=== PATIENT | female | born 1995 | race Caucasian/White ===

== ENCOUNTER 2019-02-13 00:26 | Emergency (ER) | payer MEDICAID ==
[~2019-02-13] VITALS: Ht 160 cm; Wt 44.1 kg
[~2019-02-13 00:26] MED LIST: ESCI10TA54 PO; ESCI20TA PO; GABA-531 PO; HYDR-4031 PO; LITH300C3 PO; METH10 PO; QUET200T29 PO; QUET25TA PO; TRAZ-220 PO
[2019-02-13] MEDS ORDERED: BACITRACIN 0.9 GM PACKET OINTMENT TP ONE (02:15)
[2019-02-13] MEDS ORDERED: PERTUSS(ACELL),DIPH,TET VAC/PF 0.5 ML VIAL IM ONE (02:15)
[2019-02-13] MEDS ORDERED: BUPIVACAINE HCL/PF 0.25% 30 ML VIAL INJ ONE (02:15)
[2019-02-13] MEDS ORDERED: IBUPROFEN 600 MG TABLET PO ONE (02:15)
[2019-02-13] MEDS ORDERED: CEPHALEXIN MONOHYDRATE 500 MG CAPSULE PO ONE (02:45)
[2019-02-13 03:15] VITALS: BP 124/73
== END 2019-02-13 03:29 | disposition home or self-care (01) ==
LOC: EMS 00:31
DX: S91.311A Laceration without foreign body, right foot, initial encounter (principal); F31.9 Bipolar disorder, unspecified; F17.210 Nicotine dependence, cigarettes, uncomplicated; F11.90 Opioid use, unspecified, uncomplicated; F13.10 Sedative, hypnotic or anxiolytic abuse, uncomplicated; W25.XXXA Contact with sharp glass, initial encounter; Y93.89 Activity, other specified; Y92.89 Other specified places as the place of occurrence of the external cause; Y99.8 Other external cause status
CPT/HCPCS: 12002; 73630; 81025; 99283; 99406; J3490

== ENCOUNTER 2019-05-18 15:45 | Inpatient (IN) | payer MEDICAID ==
[~2019-05-18] VITALS: Ht 160 cm; Wt 48.1 kg
[~2019-05-18 15:45] MED LIST changes: -ESCI10TA54 PO; -ESCI20TA PO; +OLAN5TAB2 PO; -QUET200T29 PO
[2019-05-18 16:23] LABS: BASOPHILS % (AUTO) 0.5 % (0.0-2.0); EOSINOPHILS % (AUTO) 0.5 % (1.0-6.0); HEMATOCRIT 40.4 % (36-46); LYMPHOCYTES # (AUTO) 3.7 K/uL (1.0-4.8); LYMPHOCYTES % (AUTO) 33.4 % (22.0-44.0); MEAN CORPUSCULAR HEMOGLOBIN 30.3 pg (26.0-34.0); MEAN CORPUSCULAR HGB CONC 32.2 G/dL (31.0-37.0); MEAN CORPUSCULAR VOLUME 94 fL (80-100); MONOCYTES # (AUTO) 0.8 K/uL (0.1-1.0); NEUTROPHILS # (AUTO) 6.6 K/uL (1.8-7.7); NEUTROPHILS % (AUTO) 58.6 % (40.0-70.0); PLATELET COUNT (AUTO) 301 K/uL (150-450); RED BLOOD CELL COUNT(AUTO) 4.29 MIL/uL (4.00-5.20); RED CELL DISTRIBUTION WIDTH 14.6 % (11.5-14.5)
[2019-05-18 16:34] LABS: LITHIUM 0.25 mmol/L (0.60-1.20)
[2019-05-18 16:36] LABS: ANION GAP 9 mmol/L (8-16); CALCIUM, TOTAL 9.3 mg/dL (8.8-10.5); CARBON DIOXIDE 24 mmol/L (22-29); CHLORIDE 103 mmol/L (98-107); CREATININE 0.72 mg/dL (0.60-1.30); GLOMERULAR FILTR. RATE CALC > 60 mL/min (>60); GLUCOSE,RANDOM 116 mg/dL (70-110); POTASSIUM 3.5 mmol/L (3.5-5.1); SODIUM SERUM 136 mmol/L (136-145); UREA NITROGEN, BLOOD 28 mg/dL (7-18)
[2019-05-18 16:49] LABS: ALANINE AMINOTRANSFERASE 144 U/L (12-78); ALBUMIN 3.6 g/dL (3.4-5.0); ALKALINE PHOSPHATASE 91 U/L (46-116); ASPARTATE AMINOTRANSFERASE 32 U/L (15-37); BILIRUBIN,TOTAL 0.2 mg/dL (0.1-1.0); HCG,QUANTITATIVE < 1 mIU/mL (0-6); TOTAL PROTEIN, SERUM 6.8 g/dL (6.4-8.2)
[2019-05-18] MEDS ORDERED: DiphenhydrAMINE HCL 25 MG CAPSULE PO ONE (17:30)
[2019-05-18] MEDS ORDERED: LORazepam 1 MG TABLET PO ONE (17:30)
[2019-05-18] MEDS ORDERED: HALOPERIDOL 5 MG TABLET PO ONE (17:30)
[2019-05-18] MEDS ORDERED: OLANZapine 5 MG TABLET PO ONE (18:45)
[2019-05-18 21:42] VITALS: BP 122/82
[2019-05-18] MEDS: LITHIUM CARBONATE 300 MG CAPSULE PO SCH (22:00)
[2019-05-18] MEDS ORDERED: PETROLATUM,WHITE 28 GM JELLY TP PRN (22:45)
[2019-05-18] MEDS ORDERED: GuaiFENesin/D-METHORPHAN [SUGAR-FREE] 200-20MG/10 ML SYRUP UDCUP PO PRN (22:45)
[2019-05-18] MEDS ORDERED: MAGNESIUM HYDROXIDE SUSPENSION 30 ML UDCUP PO PRN (22:45)
[2019-05-18] MEDS ORDERED: DOCUSATE SODIUM 100 MG CAPSULE PO PRN (22:45)
[2019-05-18] MEDS ORDERED: ACETAMINOPHEN 325 MG TABLET PO PRN (22:45)
[2019-05-18] MEDS ORDERED: CloNIDine HCL 0.1 MG TABLET PO PRN (22:45)
[2019-05-18] MEDS ORDERED: ALBUTEROL SULFATE HFA 90 MCG/PUFF 8 GM INHALER IH PRN (22:45)
[2019-05-18] MEDS ORDERED: ONDANSETRON HCL 4 MG TABLET PO PRN (22:45)
[2019-05-18] MEDS ORDERED: NICOTINE 14 MG/24 HOUR PATCH TD PRN (22:45)
[2019-05-18] MEDS: ZOLPIDEM TARTRATE 10 MG TABLET PO PRN (22:51)
[2019-05-19] MEDS: LITHIUM CARBONATE 300 MG CAPSULE PO SCH ×2 (08:07→16:01)
[2019-05-19] MEDS: LOPERAMIDE HCL 2 MG CAPSULE PO PRN (08:07)
[2019-05-19] MEDS: OLANZapine 5 MG TABLET PO SCH ×2 (08:07→16:01)
[2019-05-19] MEDS: HALOPERIDOL 5 MG TABLET PO PRN (08:08)
[2019-05-19 08:18] VITALS: BP 100/62
[2019-05-19 13:12] VITALS: BP 126/76
[2019-05-19] MEDS: LORazepam 2 MG TABLET PO PRN ×2 (13:12→17:37)
[2019-05-19 16:03] VITALS: BP 112/76
[2019-05-20 06:50] VITALS: BP 115/77
[2019-05-20 08:00] VITALS: BP 105/71
[2019-05-20] MEDS: OLANZapine 5 MG TABLET PO SCH ×2 (08:01→16:13)
[2019-05-20] MEDS: LORazepam 2 MG TABLET PO PRN ×4 (08:01→20:32)
[2019-05-20] MEDS: LITHIUM CARBONATE 300 MG CAPSULE PO SCH ×2 (08:01→16:13)
[2019-05-20] MEDS: MAG HYDROX/AL HYDROX/SIMETH ES 30 ML SUSPENSION UDCUP PO PRN ×2 (08:03→16:13)
[2019-05-20 08:15] VITALS: BP 103/50
[2019-05-20] MEDS: HALOPERIDOL 5 MG TABLET PO PRN ×2 (14:07→18:36)
[2019-05-20 16:00] VITALS: BP 124/68
[2019-05-20] MEDS: ZOLPIDEM TARTRATE 10 MG TABLET PO PRN (20:09)
[2019-05-21 05:55] VITALS: BP 127/66
[2019-05-21 08:27] VITALS: BP 100/75
[2019-05-21] MEDS: LITHIUM CARBONATE 300 MG CAPSULE PO SCH (08:31)
[2019-05-21] MEDS: OLANZapine 5 MG TABLET PO SCH ×2 (08:31→16:12)
[2019-05-21 08:35] VITALS: BP 128/74
[2019-05-21] MEDS: LORazepam 2 MG TABLET PO PRN ×3 (08:36→18:32)
[2019-05-21] MEDS: MAG HYDROX/AL HYDROX/SIMETH ES 30 ML SUSPENSION UDCUP PO PRN (09:42)
[2019-05-21 09:43] LABS: BILIRUBIN,URINE NEGATIVE (NEGATIVE); GLUCOSE, URINE (UA) NEGATIVE (NEGATIVE); KETONES,URINE NEGATIVE (NEGATIVE); LEUKOCYTE ESTERASE ,URINE SMALL (NEGATIVE); NITRATE,URINE NEGATIVE (NEGATIVE); OCCULT BLOOD,URINE NEGATIVE (NEGATIVE); PROTEIN,URINE NEGATIVE (NEGATIVE); UROBILINOGEN,URINE 0.2 mg/dL (<=1.0)
[2019-05-21 09:46] LABS: APPEARANCE,URINE SLIGHTLY CLOUDY (CLEAR)
[2019-05-21 09:49] LABS: AMPHET/METH SCREEN,URINE NEGATIVE (NEGATIVE); BARBITURATE SCREEN, URINE NEGATIVE (NEGATIVE); BENZODIAZEPINES SCREEN,URINE NEGATIVE (NEGATIVE); CANNABINOID SCREEN,URINE NEGATIVE (NEGATIVE); COCAINE SCREEN,URINE NEGATIVE (NEGATIVE); METHADONE SCREEN, URINE NEGATIVE (NEGATIVE); OPIATE SCREEN,URINE NEGATIVE (NEGATIVE); PHENCYCLIDINE SCREEN,URINE NEGATIVE (NEGATIVE)
[2019-05-21 09:58] LABS: BACTERIA,URINE Moderate /HPF (None Seen); RBC,URINE 0-2 /HPF (0-2); SQUAMOUS EPITHELIAL CELL,UR Moderate /LPF (None Seen)
[2019-05-21 09:59] LABS: AMORPHOUS SEDIMENT,UR Moderate /LPF (None Seen); CALCIUM OXALATE CRYSTALS,UR Moderate /LPF (None Seen)
[2019-05-21] MEDS: HALOPERIDOL 5 MG TABLET PO PRN ×2 (10:43→17:18)
[2019-05-21 16:08] VITALS: BP 121/70
[2019-05-21] MEDS: LITHIUM CARBONATE 600 MG CAPSULE PO SCH (16:12)
[2019-05-21] MEDS: IBUPROFEN 400 MG TABLET PO PRN (16:47)
[2019-05-21 17:47] VITALS: BP 118/65
[2019-05-22] VITALS: BP 129/86
[2019-05-22] MEDS: IBUPROFEN 400 MG TABLET PO PRN (06:03)
[2019-05-22] MEDS: MAG HYDROX/AL HYDROX/SIMETH ES 30 ML SUSPENSION UDCUP PO PRN ×2 (06:03→16:35)
[2019-05-22] MEDS: LORazepam 2 MG TABLET PO PRN ×2 (06:03→16:34)
[2019-05-22] MEDS: OLANZapine 5 MG TABLET PO SCH ×2 (08:14→16:34)
[2019-05-22] MEDS: LITHIUM CARBONATE 600 MG CAPSULE PO SCH ×2 (08:14→10:00)
[2019-05-22 08:19] VITALS: BP 100/57
[2019-05-22 16:09] VITALS: BP 126/72
[2019-05-22] MEDS: HALOPERIDOL 5 MG TABLET PO PRN (16:34)
[2019-05-22] MEDS: CEPHALEXIN MONOHYDRATE 250 MG CAPSULE PO SCH (16:34)
[2019-05-22] MEDS: ZOLPIDEM TARTRATE 10 MG TABLET PO PRN (20:34)
[2019-05-23 01:31] VITALS: BP 111/59
[2019-05-23] MEDS: LORazepam 2 MG TABLET PO PRN ×2 (01:36→12:41)
[2019-05-23] MEDS: HALOPERIDOL 5 MG TABLET PO PRN (01:36)
[2019-05-23 08:00] VITALS: BP 118/62
[2019-05-23] MEDS: CEPHALEXIN MONOHYDRATE 250 MG CAPSULE PO SCH ×3 (08:24→16:10)
[2019-05-23] MEDS: OLANZapine 5 MG TABLET PO SCH ×2 (08:25→16:10)
[2019-05-23] MEDS: LITHIUM CARBONATE 600 MG CAPSULE PO SCH ×2 (08:25→16:10)
[2019-05-23] MEDS ORDERED: LITH300C3 PO (09:49)
[2019-05-23] MEDS ORDERED: CEPH250 PO (09:50)
[2019-05-23] MEDS: LOPERAMIDE HCL 2 MG CAPSULE PO PRN (15:04)
[2019-05-23 16:05] VITALS: BP 125/66
== END 2019-05-23 18:17 | disposition home or self-care (01) | DRG 750 ==
LOC: EMS 15:47 → B3A 19:00
PROVIDERS: ADMIT Psychiatry & Neurology Psychiatry; ATTEND Psychiatry & Neurology Psychiatry
DX: F25.1 Schizoaffective disorder, depressive type (principal); R45.851 Suicidal ideations; Z59.0 Homelessness; F11.90 Opioid use, unspecified, uncomplicated; F15.90 Other stimulant use, unspecified, uncomplicated; F17.210 Nicotine dependence, cigarettes, uncomplicated; F41.9 Anxiety disorder, unspecified; N39.0 Urinary tract infection, site not specified; B19.20 Unspecified viral hepatitis C without hepatic coma
CPT/HCPCS: 80307; 84443; 87081; 87086; G0480; Q0162

== ENCOUNTER 2019-08-11 16:26 | Inpatient (IN) | payer MEDICAID ==
[~2019-08-11] VITALS: Ht 157.5 cm; Wt 53.1 kg
[~2019-08-11 16:26] MED LIST changes: +CEPH250 PO; -GABA-531 PO; -HYDR-4031 PO; -METH10 PO; -QUET25TA PO; -TRAZ-220 PO
[2019-08-11] MEDS ORDERED: OLANZapine 5 MG TABLET PO SCH (21:30)
[2019-08-11] MEDS ORDERED: MIRTAZAPINE 15 MG TABLET PO SCH (21:30)
[2019-08-11] MEDS ORDERED: ACETAMINOPHEN 325 MG TABLET PO PRN (21:45)
[2019-08-11] MEDS ORDERED: IBUPROFEN 400 MG TABLET PO PRN (21:45)
[2019-08-11 22:59] VITALS: BP 108/63
[2019-08-12 04:13] VITALS: BP 104/66
[2019-08-12] MEDS: LORazepam 2 MG TABLET PO PRN ×3 (04:15→15:11)
[2019-08-12 07:42] LABS: BASOPHILS % (AUTO) 0.4 % (0.0-2.0); EOSINOPHILS % (AUTO) 2.4 % (1.0-6.0); HEMOGLOBIN 13.5 g/dL (12.0-16.0); LYMPHOCYTES # (AUTO) 2.9 K/uL (1.0-4.8); LYMPHOCYTES % (AUTO) 38.1 % (22.0-44.0); MEAN CORPUSCULAR HEMOGLOBIN 33.3 pg (26.0-34.0); MEAN CORPUSCULAR HGB CONC 35.4 G/dL (31.0-37.0); MEAN CORPUSCULAR VOLUME 94 fL (80-100); MONOCYTES # (AUTO) 0.4 K/uL (0.1-1.0); MONOCYTES % (AUTO) 5.4 % (2.0-9.0); NEUTROPHILS # (AUTO) 4.1 K/uL (1.8-7.7); NEUTROPHILS % (AUTO) 53.7 % (40.0-70.0); PLATELET COUNT (AUTO) 254 K/uL (150-450); RED BLOOD CELL COUNT(AUTO) 4.04 MIL/uL (4.00-5.20); RED CELL DISTRIBUTION WIDTH 13.9 % (11.5-14.5)
[2019-08-12 08:00] VITALS: BP 102/69
[2019-08-12 08:06] LABS: ALANINE AMINOTRANSFERASE 37 U/L (12-78); ALBUMIN 3.4 g/dL (3.4-5.0); ALKALINE PHOSPHATASE 76 U/L (46-116); ANION GAP 5 mmol/L (8-16); ASPARTATE AMINOTRANSFERASE 16 U/L (15-37); BILIRUBIN,TOTAL 0.3 mg/dL (0.1-1.0); CALCIUM, TOTAL 9.6 mg/dL (8.8-10.5); CARBON DIOXIDE 33 mmol/L (22-29); CHLORIDE 99 mmol/L (98-107); CHOL/HDL RATIO 4.6 (3.9-5.7); CHOLESTEROL 196 mg/dL (131-200); CREATININE 0.58 mg/dL (0.60-1.30); GLOMERULAR FILTR. RATE CALC > 60 mL/min (>60); GLUCOSE,RANDOM 85 mg/dL (70-110); HCG,QUANTITATIVE < 1 mIU/mL (0-6); HDL CHOLESTEROL 43 mg/dL (40-60); LDL CHOL (CALC.) 127 mg/dL (0-130); POTASSIUM 4.3 mmol/L (3.5-5.1); SODIUM SERUM 137 mmol/L (136-145); TOTAL PROTEIN, SERUM 7.5 g/dL (6.4-8.2); TRIGLYCERIDES 130 mg/dL (15-150); UREA NITROGEN, BLOOD 8 mg/dL (7-18)
[2019-08-12] MEDS: GABAPENTIN 300 MG CAPSULE PO SCH (08:55)
[2019-08-12] MEDS: METHADONE HCL 10 MG TABLET PO SCH (08:55)
[2019-08-12] MEDS: NICOTINE 14 MG/24 HOUR PATCH TD SCH (08:59)
[2019-08-12] MEDS: BACITRACIN 28.4 GM OINTMENT TP SCH ×2 (09:18→17:06)
[2019-08-12] MEDS ORDERED: ALBUTEROL SULFATE HFA 90 MCG/PUFF 8 GM INHALER IH PRN (14:15)
[2019-08-12] MEDS ORDERED: GuaiFENesin/D-METHORPHAN [SUGAR-FREE] 200-20MG/10 ML SYRUP UDCUP PO PRN (14:15)
[2019-08-12] MEDS ORDERED: DOCUSATE SODIUM 100 MG CAPSULE PO PRN (14:15)
[2019-08-12] MEDS ORDERED: MAGNESIUM HYDROXIDE SUSPENSION 30 ML UDCUP PO PRN (14:15)
[2019-08-12] MEDS ORDERED: LOPERAMIDE HCL 2 MG CAPSULE PO PRN (14:15)
[2019-08-12] MEDS ORDERED: NICOTINE 14 MG/24 HOUR PATCH TD PRN (14:15)
[2019-08-12] MEDS ORDERED: ACETAMINOPHEN 325 MG TABLET PO PRN (14:15)
[2019-08-12] MEDS ORDERED: MAG HYDROX/AL HYDROX/SIMETH ES 30 ML SUSPENSION UDCUP PO PRN (14:15)
[2019-08-12] MEDS ORDERED: PETROLATUM,WHITE 28 GM JELLY TP PRN (14:15)
[2019-08-12] MEDS ORDERED: ONDANSETRON HCL 4 MG TABLET PO PRN (14:15)
[2019-08-12] MEDS ORDERED: CloNIDine HCL 0.1 MG TABLET PO PRN (14:15)
[2019-08-12] MEDS: HALOPERIDOL 5 MG TABLET PO PRN ×2 (15:11→21:28)
[2019-08-12 16:18] VITALS: BP 105/72
[2019-08-12 16:29] LABS: APPEARANCE,URINE CLOUDY (CLEAR); BILIRUBIN,URINE NEGATIVE (NEGATIVE); GLUCOSE, URINE (UA) NEGATIVE (NEGATIVE); KETONES,URINE NEGATIVE (NEGATIVE); LEUKOCYTE ESTERASE ,URINE NEGATIVE (NEGATIVE); NITRATE,URINE NEGATIVE (NEGATIVE); OCCULT BLOOD,URINE NEGATIVE (NEGATIVE); PROTEIN,URINE NEGATIVE (NEGATIVE); UROBILINOGEN,URINE 0.2 mg/dL (<=1.0)
[2019-08-12 16:34] LABS: AMPHET/METH SCREEN,URINE NEGATIVE (NEGATIVE); BARBITURATE SCREEN, URINE NEGATIVE (NEGATIVE); BENZODIAZEPINES SCREEN,URINE NEGATIVE (NEGATIVE); CANNABINOID SCREEN,URINE NEGATIVE (NEGATIVE); COCAINE SCREEN,URINE NEGATIVE (NEGATIVE); METHADONE SCREEN, URINE POSITIVE (NEGATIVE); OPIATE SCREEN,URINE NEGATIVE (NEGATIVE); PHENCYCLIDINE SCREEN,URINE NEGATIVE (NEGATIVE)
[2019-08-12] MEDS: LURASIDONE HCL 40 MG TABLET PO SCH (17:06)
[2019-08-12] MEDS: ZOLPIDEM TARTRATE 10 MG TABLET PO PRN (22:11)
[2019-08-13 03:06] VITALS: BP 96/75
[2019-08-13 09:01] VITALS: BP 109/64
[2019-08-13] MEDS: MULTIVITAMINS WITH MINERALS, THERAPEUTIC TABLET PO SCH (09:06)
[2019-08-13] MEDS: GABAPENTIN 300 MG CAPSULE PO SCH (09:06)
[2019-08-13] MEDS: BACITRACIN 28.4 GM OINTMENT TP SCH ×2 (09:07→17:14)
[2019-08-13] MEDS: NICOTINE 14 MG/24 HOUR PATCH TD SCH (09:07)
[2019-08-13] MEDS: METHADONE HCL 10 MG TABLET PO SCH (09:07)
[2019-08-13] MEDS: LORazepam 2 MG TABLET PO PRN ×2 (10:03→17:33)
[2019-08-13] MEDS: HALOPERIDOL 5 MG TABLET PO PRN ×2 (10:03→17:33)
[2019-08-13 16:05] VITALS: BP 102/68
[2019-08-13 16:25] VITALS: BP 102/74
[2019-08-13] MEDS: LURASIDONE HCL 40 MG TABLET PO SCH (17:32)
[2019-08-13] MEDS: ZOLPIDEM TARTRATE 10 MG TABLET PO PRN (21:23)
[2019-08-14] MEDS: LORazepam 2 MG TABLET PO PRN ×2 (05:43→17:46)
[2019-08-14] MEDS: GABAPENTIN 300 MG CAPSULE PO SCH (08:10)
[2019-08-14] MEDS: MULTIVITAMINS WITH MINERALS, THERAPEUTIC TABLET PO SCH (08:10)
[2019-08-14] MEDS: METHADONE HCL 10 MG TABLET PO SCH (08:10)
[2019-08-14] MEDS: NICOTINE 14 MG/24 HOUR PATCH TD SCH (08:11)
[2019-08-14] MEDS: BACITRACIN 28.4 GM OINTMENT TP SCH ×2 (08:11→17:02)
[2019-08-14 08:45] VITALS: BP 99/59
[2019-08-14] MEDS ORDERED: ZOLPIDEM TARTRATE 10 MG TABLET PO PRN (09:45)
[2019-08-14 17:00] VITALS: BP 111/70
[2019-08-14] MEDS: LURASIDONE HCL 40 MG TABLET PO SCH (17:02)
[2019-08-15 07:48] VITALS: BP 96/65
[2019-08-15] MEDS: NICOTINE 14 MG/24 HOUR PATCH TD SCH (08:23)
[2019-08-15] MEDS: MULTIVITAMINS WITH MINERALS, THERAPEUTIC TABLET PO SCH (08:24)
[2019-08-15] MEDS: METHADONE HCL 10 MG TABLET PO SCH (08:24)
[2019-08-15] MEDS: GABAPENTIN 300 MG CAPSULE PO SCH (08:25)
[2019-08-15] MEDS: LORazepam 2 MG TABLET PO PRN ×2 (13:05→20:14)
[2019-08-15] MEDS: BACITRACIN 28.4 GM OINTMENT TP SCH ×2 (13:08→16:32)
[2019-08-15] MEDS: LURASIDONE HCL 40 MG TABLET PO SCH (17:05)
[2019-08-15 17:08] VITALS: BP 108/72
[2019-08-15] MEDS: HALOPERIDOL 5 MG TABLET PO PRN (17:08)
[2019-08-15 20:12] VITALS: BP 112/74
[2019-08-15] MEDS: IBUPROFEN 400 MG TABLET PO PRN (20:12)
[2019-08-16 08:00] VITALS: BP 98/64
[2019-08-16] MEDS: MULTIVITAMINS WITH MINERALS, THERAPEUTIC TABLET PO SCH (08:19)
[2019-08-16] MEDS: METHADONE HCL 10 MG TABLET PO SCH (08:19)
[2019-08-16] MEDS: GABAPENTIN 300 MG CAPSULE PO SCH (08:19)
[2019-08-16] MEDS: NICOTINE 14 MG/24 HOUR PATCH TD SCH (08:20)
[2019-08-16] MEDS: BACITRACIN 28.4 GM OINTMENT TP SCH ×2 (08:29→16:18)
[2019-08-16 11:19] VITALS: BP 102/68
[2019-08-16] MEDS: IBUPROFEN 400 MG TABLET PO PRN (11:19)
[2019-08-16] MEDS: LORazepam 2 MG TABLET PO PRN (12:57)
[2019-08-16] MEDS: HALOPERIDOL 5 MG TABLET PO PRN (15:50)
[2019-08-16 16:22] VITALS: BP 112/76
[2019-08-16] MEDS: LURASIDONE HCL 40 MG TABLET PO SCH (17:33)
[2019-08-17] MEDS: HALOPERIDOL 5 MG TABLET PO PRN (01:04)
[2019-08-17] MEDS: LORazepam 2 MG TABLET PO PRN (01:04)
[2019-08-17] MEDS: METHADONE HCL 10 MG TABLET PO SCH (08:06)
[2019-08-17] MEDS: MULTIVITAMINS WITH MINERALS, THERAPEUTIC TABLET PO SCH (08:06)
[2019-08-17] MEDS: GABAPENTIN 300 MG CAPSULE PO SCH (08:06)
[2019-08-17] MEDS: NICOTINE 14 MG/24 HOUR PATCH TD SCH (09:00)
[2019-08-17 09:56] VITALS: BP 108/68
[2019-08-17] MEDS: BACITRACIN 28.4 GM OINTMENT TP SCH (10:38)
[2019-08-17] MEDS ORDERED: LURA40 PO (10:40)
[2019-08-17] MEDS ORDERED: GABA-531 PO (10:40)
[2019-08-17] MEDS ORDERED: BACI30OI6 TP (11:18)
== END 2019-08-17 11:30 | disposition home or self-care (01) | DRG 885 ==
LOC: 3EC 20:51
DX: F25.0 Schizoaffective disorder, bipolar type (principal); B18.2 Chronic viral hepatitis C; Z59.0 Homelessness; F10.10 Alcohol abuse, uncomplicated; F12.10 Cannabis abuse, uncomplicated; F15.10 Other stimulant abuse, uncomplicated; K21.9 Gastro-esophageal reflux disease without esophagitis; F19.10 Other psychoactive substance abuse, uncomplicated; F32.9 Major depressive disorder, single episode, unspecified; G89.29 Other chronic pain; Z79.899 Other long term (current) drug therapy; Z71.41 Alcohol abuse counseling and surveillance of alcoholic
CPT/HCPCS: 80307; 84443; 87081

== ENCOUNTER 2020-05-04 11:59 | Emergency (ER) | payer MEDICAID ==
[~2020-05-04] VITALS: Ht 160 cm; Wt 63.6 kg
[~2020-05-04 11:59] MED LIST changes: +BACI30OI6 TP; -CEPH250 PO; +GABA-531 PO; -LITH300C3 PO; +LURA40TA2 PO; -OLAN5TAB2 PO
[2020-05-04 12:16] VITALS: BP 132/91
== END 2020-05-04 12:59 | disposition home or self-care (01) ==
LOC: EMS 12:04
DX: L03.114 Cellulitis of left upper limb (principal); R55 Syncope and collapse; F19.10 Other psychoactive substance abuse, uncomplicated; F17.210 Nicotine dependence, cigarettes, uncomplicated; F31.9 Bipolar disorder, unspecified; F20.9 Schizophrenia, unspecified; F11.90 Opioid use, unspecified, uncomplicated; Z59.0 Homelessness
CPT/HCPCS: 99291; Z7502

== ENCOUNTER 2020-05-06 11:44 | Emergency (ER) | payer MEDICAID ==
[~2020-05-06] VITALS: Ht 160 cm; Wt 45.5 kg
[2020-05-06 11:58] VITALS: BP 113/72
[2020-05-06] MEDS ORDERED: IBUPROFEN 400 MG TABLET PO ONE (12:30)
[2020-05-06] MEDS ORDERED: DOXYCYCLINE HYCLATE 100 MG TABLET PO ONE (12:30)
== END 2020-05-06 12:42 | disposition home or self-care (01) ==
LOC: EMS 11:46
DX: S90.512A Abrasion, left ankle, initial encounter (principal); L08.9 Local infection of the skin and subcutaneous tissue, unspecified; F31.9 Bipolar disorder, unspecified; F11.90 Opioid use, unspecified, uncomplicated; F17.210 Nicotine dependence, cigarettes, uncomplicated; Z79.899 Other long term (current) drug therapy; X58.XXXA Exposure to other specified factors, initial encounter; Y93.89 Activity, other specified; Y92.89 Other specified places as the place of occurrence of the external cause; Y99.8 Other external cause status
CPT/HCPCS: 99406

== ENCOUNTER 2020-05-24 04:53 | Emergency (ER) | payer MEDICAID ==
[~2020-05-24] VITALS: Ht 160 cm; Wt 49.1 kg
[2020-05-24 06:39] VITALS: BP 101/67
[2020-05-24] MEDS ORDERED: BACITRACIN 0.9 GM PACKET OINTMENT TP ONE (06:45)
== END 2020-05-24 07:04 | disposition home or self-care (01) ==
LOC: EMS 04:53
DX: S90.511A Abrasion, right ankle, initial encounter (principal); F31.9 Bipolar disorder, unspecified; F20.9 Schizophrenia, unspecified; F17.210 Nicotine dependence, cigarettes, uncomplicated; F11.90 Opioid use, unspecified, uncomplicated; X58.XXXA Exposure to other specified factors, initial encounter; Y93.89 Activity, other specified; Y92.89 Other specified places as the place of occurrence of the external cause; Y99.8 Other external cause status
CPT/HCPCS: Z7502; Z7610

== ENCOUNTER 2021-04-05 10:24 | Emergency (ER) | payer MEDICAID ==
[~2021-04-05] VITALS: Ht 160 cm; Wt 65.9 kg
[2021-04-05] MEDS ORDERED: LEVE500T8 PO (10:29)
[2021-04-05 12:13] VITALS: BP 128/69
== END 2021-04-05 13:08 | disposition left against medical advice (07) ==
LOC: EMS 10:24
DX: R56.9 Unspecified convulsions (principal); Z53.21 Procedure and treatment not carried out due to patient leaving prior to being seen by health care provider
CPT/HCPCS: 82948

== ENCOUNTER 2021-04-29 12:05 | Inpatient (IN) | payer MEDICAID ==
[~2021-04-29] VITALS: Ht 160 cm; Wt 52.5 kg
[~2021-04-29 12:05] MED LIST changes: +LEVE500T8 PO
[2021-04-29 16:35] LABS: AMPHET/METH SCREEN,URINE POSITIVE (NEGATIVE); BARBITURATE SCREEN, URINE NEGATIVE (NEGATIVE); BENZODIAZEPINES SCREEN,URINE NEGATIVE (NEGATIVE); CANNABINOID SCREEN,URINE NEGATIVE (NEGATIVE); COCAINE SCREEN,URINE NEGATIVE (NEGATIVE); METHADONE SCREEN, URINE NEGATIVE (NEGATIVE); OPIATE SCREEN,URINE NEGATIVE (NEGATIVE)
[2021-04-29 16:39] LABS: PHENCYCLIDINE SCREEN,URINE NEGATIVE (NEGATIVE)
[2021-04-29 17:21] LABS: BASOPHILS % (AUTO) 0.3 % (0.0-2.0); EOSINOPHILS % (AUTO) 1.2 % (1.0-6.0); HEMATOCRIT 36.9 % (36-46); HEMOGLOBIN 12.3 g/dL (12.0-16.0); LYMPHOCYTES # (AUTO) 2.9 K/uL (1.0-4.8); LYMPHOCYTES % (AUTO) 37.7 % (22.0-44.0); MEAN CORPUSCULAR HGB CONC 33.3 G/dL (31.0-37.0); MEAN CORPUSCULAR VOLUME 93 fL (80-100); MONOCYTES # (AUTO) 0.6 K/uL (0.1-1.0); MONOCYTES % (AUTO) 7.2 % (2.0-9.0); NEUTROPHILS # (AUTO) 4.1 K/uL (1.8-7.7); NEUTROPHILS % (AUTO) 53.6 % (40.0-70.0); PLATELET COUNT (AUTO) 242 K/uL (150-450); RED BLOOD CELL COUNT(AUTO) 3.96 MIL/uL (4.00-5.20); RED CELL DISTRIBUTION WIDTH 13.3 % (11.5-14.5)
[2021-04-29 17:38] LABS: ANION GAP 6 mmol/L (8-16); CALCIUM, TOTAL 8.7 mg/dL (8.8-10.5); CARBON DIOXIDE 29 mmol/L (22-29); CHLORIDE 102 mmol/L (98-107); CREATININE 0.59 mg/dL (0.60-1.30); GLOMERULAR FILTR. RATE CALC > 60 mL/min (>60); GLUCOSE,RANDOM 112 mg/dL (70-110); POTASSIUM 3.4 mmol/L (3.5-5.1); SODIUM SERUM 137 mmol/L (136-145); UREA NITROGEN, BLOOD 20 mg/dL (7-18)
[2021-04-29 17:51] LABS: ALANINE AMINOTRANSFERASE 19 U/L (12-78); ALBUMIN 3.5 g/dL (3.4-5.0); ALKALINE PHOSPHATASE 150 U/L (46-116); ASPARTATE AMINOTRANSFERASE 15 U/L (15-37); BILIRUBIN,TOTAL 0.2 mg/dL (0.1-1.0); HCG,QUANTITATIVE < 1 mIU/mL (0-6); TOTAL PROTEIN, SERUM 6.8 g/dL (6.4-8.2)
[2021-04-29] MEDS ORDERED: POTASSIUM CHLORIDE 10% 40 MEQ/30 ML LIQUID UDCUP PO ONE (19:15)
[2021-04-29 19:49] LABS: COVID AG,FIA SOURCE NASOPHARYNGEAL
[2021-04-29] MEDS ORDERED: QUEtiapine FUMARATE 100 MG TABLET PO PRN (20:00)
[2021-04-29 22:17] VITALS: BP 117/68
[2021-04-30 00:26] VITALS: BP 103/62
[2021-04-30] MEDS ORDERED: MAGNESIUM HYDROXIDE SUSPENSION 30 ML UDCUP PO PRN (07:45)
[2021-04-30] MEDS ORDERED: GuaiFENesin/D-METHORPHAN [SUGAR-FREE] 200-20MG/10 ML SYRUP UDCUP PO PRN (07:45)
[2021-04-30] MEDS ORDERED: MAG HYDROX/AL HYDROX/SIMETH ES 30 ML SUSPENSION UDCUP PO PRN (07:45)
[2021-04-30] MEDS ORDERED: PETROLATUM,WHITE 28 GM JELLY TP PRN (07:45)
[2021-04-30] MEDS ORDERED: IBUPROFEN 400 MG TABLET PO PRN (07:45)
[2021-04-30] MEDS ORDERED: CloNIDine HCL 0.1 MG TABLET PO PRN (07:45)
[2021-04-30] MEDS ORDERED: ACETAMINOPHEN 325 MG TABLET PO PRN (07:45)
[2021-04-30] MEDS ORDERED: ONDANSETRON HCL 4 MG TABLET PO PRN (07:45)
[2021-04-30] MEDS ORDERED: NICOTINE 14 MG/24 HOUR PATCH TD PRN (07:45)
[2021-04-30] MEDS ORDERED: DOCUSATE SODIUM 100 MG CAPSULE PO PRN (07:45)
[2021-04-30] MEDS ORDERED: ALBUTEROL SULFATE HFA 90 MCG/PUFF 8 GM INHALER IH PRN (07:45)
[2021-04-30] MEDS ORDERED: LOPERAMIDE HCL 2 MG CAPSULE PO PRN (07:45)
[2021-04-30 08:27] VITALS: BP 105/57
[2021-04-30] MEDS: GABAPENTIN 300 MG CAPSULE PO SCH (09:23)
[2021-04-30] MEDS: LevETIRAcetam 500 MG TABLET PO SCH ×2 (09:23→16:28)
[2021-04-30 16:17] VITALS: BP 103/67
[2021-04-30] MEDS: QUEtiapine FUMARATE 200 MG TABLET PO SCH (20:55)
[2021-05-01 01:30] VITALS: BP 104/62
[2021-05-01 08:29] VITALS: BP 115/71
[2021-05-01] MEDS: LevETIRAcetam 500 MG TABLET PO SCH ×2 (08:50→16:17)
[2021-05-01] MEDS: GABAPENTIN 300 MG CAPSULE PO SCH (08:50)
[2021-05-01] MEDS: LORazepam 2 MG TABLET PO PRN (13:12)
[2021-05-01 16:24] VITALS: BP 111/65
[2021-05-01] MEDS: ZOLPIDEM TARTRATE 10 MG TABLET PO PRN (21:00)
[2021-05-01] MEDS: QUEtiapine FUMARATE 200 MG TABLET PO SCH (21:00)
[2021-05-02 01:20] VITALS: BP 135/70
[2021-05-02] MEDS: GABAPENTIN 300 MG CAPSULE PO SCH (08:47)
[2021-05-02] MEDS: LevETIRAcetam 500 MG TABLET PO SCH ×2 (08:47→16:22)
[2021-05-02 09:03] VITALS: BP 103/57
[2021-05-02] MEDS: LORazepam 2 MG TABLET PO PRN (16:22)
[2021-05-02 16:27] VITALS: BP 107/66
[2021-05-02] MEDS: QUEtiapine FUMARATE 200 MG TABLET PO SCH (20:19)
[2021-05-03 00:40] VITALS: BP 108/74
[2021-05-03] MEDS: GABAPENTIN 300 MG CAPSULE PO SCH (08:18)
[2021-05-03] MEDS: LevETIRAcetam 500 MG TABLET PO SCH ×2 (08:18→16:26)
[2021-05-03] MEDS: MULTIVITAMINS WITH MINERALS, THERAPEUTIC TABLET PO SCH (08:18)
[2021-05-03 09:07] VITALS: BP 105/65
[2021-05-03] MEDS: LORazepam 2 MG TABLET PO PRN (09:49)
[2021-05-03 16:12] VITALS: BP 104/61
[2021-05-03] MEDS: QUEtiapine FUMARATE 200 MG TABLET PO SCH (20:28)
[2021-05-03] MEDS ORDERED: PERMETHRIN 1% 60 ML LOTION TP ONE (22:30)
[2021-05-04 06:02] VITALS: BP 110/62
[2021-05-04 08:09] VITALS: BP 123/62
[2021-05-04 08:14] LABS: COVID AG,FIA SOURCE NASOPHARYNGEAL
[2021-05-04 08:26] LABS: ANION GAP 12 mmol/L (8-16); CALCIUM, TOTAL 9.3 mg/dL (8.8-10.5); CARBON DIOXIDE 24 mmol/L (22-29); CHLORIDE 106 mmol/L (98-107); CHOL/HDL RATIO 4.1 (3.9-5.7); CHOLESTEROL 158 mg/dL (131-200); CREATININE 0.38 mg/dL (0.60-1.30); GLOMERULAR FILTR. RATE CALC > 60 mL/min (>60); GLUCOSE,RANDOM 84 mg/dL (70-110); HDL CHOLESTEROL 39 mg/dL (40-60); LDL CHOL (CALC.) 97 mg/dL (0-130); PHOSPHORUS 4.3 mg/dL (2.5-4.9); POTASSIUM 3.7 mmol/L (3.5-5.1); SODIUM SERUM 142 mmol/L (136-145); TRIGLYCERIDES 110 mg/dL (15-150); UREA NITROGEN, BLOOD 16 mg/dL (7-18)
[2021-05-04] MEDS ORDERED: MAGNESIUM OXIDE 400 MG TABLET PO ONE (09:15)
[2021-05-04] MEDS: GABAPENTIN 300 MG CAPSULE PO SCH (09:32)
[2021-05-04] MEDS: LevETIRAcetam 500 MG TABLET PO SCH ×2 (09:32→16:03)
[2021-05-04] MEDS: MULTIVITAMINS WITH MINERALS, THERAPEUTIC TABLET PO SCH (09:33)
[2021-05-04] MEDS: LORazepam 2 MG TABLET PO PRN (11:20)
[2021-05-04 16:01] VITALS: BP 117/68
[2021-05-04] MEDS: QUEtiapine FUMARATE 200 MG TABLET PO SCH (20:17)
[2021-05-04] MEDS: ZOLPIDEM TARTRATE 10 MG TABLET PO PRN (22:25)
[2021-05-05 05:58] VITALS: BP 106/62
[2021-05-05] MEDS: LevETIRAcetam 500 MG TABLET PO SCH (08:07)
[2021-05-05] MEDS: GABAPENTIN 300 MG CAPSULE PO SCH (08:07)
[2021-05-05] MEDS: MULTIVITAMINS WITH MINERALS, THERAPEUTIC TABLET PO SCH (08:07)
[2021-05-05 08:16] VITALS: BP 115/56
[2021-05-05] MEDS: LORazepam 2 MG TABLET PO PRN (08:23)
[2021-05-05] MEDS ORDERED: LEVE500T53 PO (10:00)
[2021-05-05] MEDS ORDERED: GABA-1181 PO (10:00)
[2021-05-05] MEDS ORDERED: QUET200T30 PO (10:00)
== END 2021-05-05 11:15 | disposition home or self-care (01) | DRG 750 ==
LOC: EMS 12:09 → B2S 20:00
DX: F25.0 Schizoaffective disorder, bipolar type (principal); G40.909 Epilepsy, unspecified, not intractable, without status epilepticus; R45.851 Suicidal ideations; B18.2 Chronic viral hepatitis C; F17.210 Nicotine dependence, cigarettes, uncomplicated; N39.0 Urinary tract infection, site not specified; F15.20 Other stimulant dependence, uncomplicated; E87.6 Hypokalemia; F11.20 Opioid dependence, uncomplicated; F19.10 Other psychoactive substance abuse, uncomplicated; F10.10 Alcohol abuse, uncomplicated; Z20.822 Contact with and (suspected) exposure to COVID-19; Z79.899 Other long term (current) drug therapy; Z59.0 Homelessness
CPT/HCPCS: 80048; 80053; 80061; 83735; 84100; 84702; 85025; 99285; G0480

== ENCOUNTER 2021-05-12 10:42 | Emergency (ER) | payer MEDICAID ==
[~2021-05-12] VITALS: Ht 167.6 cm; Wt 72.7 kg
[~2021-05-12 10:42] MED LIST changes: -BACI30OI6 TP; +GABA-1181 PO; -GABA-531 PO; +LEVE500T53 PO; -LEVE500T8 PO; -LURA40TA2 PO; +QUET200T30 PO
[2021-05-12] MEDS ORDERED: LevETIRAcetam 1,000 MG in DEXTROSE 5%-WATER 100 ML IV ONE (11:45)
[2021-05-12 12:57] LABS: BASOPHILS % (AUTO) 0.3 % (0.0-2.0); EOSINOPHILS % (AUTO) 0.3 % (1.0-6.0); HEMATOCRIT 35.6 % (36-46); HEMOGLOBIN 11.9 g/dL (12.0-16.0); LYMPHOCYTES # (AUTO) 2.9 K/uL (1.0-4.8); LYMPHOCYTES % (AUTO) 31.6 % (22.0-44.0); MEAN CORPUSCULAR HEMOGLOBIN 30.8 pg (26.0-34.0); MEAN CORPUSCULAR HGB CONC 33.4 G/dL (31.0-37.0); MEAN CORPUSCULAR VOLUME 92 fL (80-100); MONOCYTES # (AUTO) 0.8 K/uL (0.1-1.0); MONOCYTES % (AUTO) 8.7 % (2.0-9.0); NEUTROPHILS # (AUTO) 5.5 K/uL (1.8-7.7); NEUTROPHILS % (AUTO) 59.1 % (40.0-70.0); PLATELET COUNT (AUTO) 304 K/uL (150-450); RED BLOOD CELL COUNT(AUTO) 3.85 MIL/uL (4.00-5.20); RED CELL DISTRIBUTION WIDTH 13.4 % (11.5-14.5)
[2021-05-12 13:06] LABS: ANION GAP 7 mmol/L (8-16); CALCIUM, TOTAL 8.8 mg/dL (8.8-10.5); CARBON DIOXIDE 29 mmol/L (22-29); CHLORIDE 104 mmol/L (98-107); CREATININE 0.54 mg/dL (0.60-1.30); GLOMERULAR FILTR. RATE CALC > 60 mL/min (>60); GLUCOSE,RANDOM 115 mg/dL (70-110); POTASSIUM 3.4 mmol/L (3.5-5.1); SODIUM SERUM 140 mmol/L (136-145); UREA NITROGEN, BLOOD 14 mg/dL (7-18)
[2021-05-12 13:16] LABS: B-TYPE NATRIURETIC PEPTIDE 12 pg/mL (0-100)
[2021-05-12 13:31] LABS: ALANINE AMINOTRANSFERASE 24 U/L (12-78); ALBUMIN 3.8 g/dL (3.4-5.0); ALKALINE PHOSPHATASE 147 U/L (46-116); ASPARTATE AMINOTRANSFERASE 15 U/L (15-37); BILIRUBIN,TOTAL 0.3 mg/dL (0.1-1.0); CREATINE KINASE, TOTAL ONLY 145 U/L (26-192); TOTAL PROTEIN, SERUM 7.3 g/dL (6.4-8.2)
[2021-05-12 13:57] LABS: APPEARANCE,URINE CLEAR (CLEAR); BILIRUBIN,URINE NEGATIVE (NEGATIVE); GLUCOSE, URINE (UA) NEGATIVE (NEGATIVE); KETONES,URINE 40 mg/dL (NEGATIVE); LEUKOCYTE ESTERASE ,URINE NEGATIVE (NEGATIVE); NITRATE,URINE NEGATIVE (NEGATIVE); OCCULT BLOOD,URINE NEGATIVE (NEGATIVE); PH,URINE 6.5 (5.0-8.0); PROTEIN,URINE NEGATIVE (NEGATIVE); UROBILINOGEN,URINE 0.2 mg/dL (<=1.0)
[2021-05-12 14:00] VITALS: BP 104/63
[2021-05-12 14:04] LABS: AMPHET/METH SCREEN,URINE POSITIVE (NEGATIVE); BARBITURATE SCREEN, URINE NEGATIVE (NEGATIVE); BENZODIAZEPINES SCREEN,URINE NEGATIVE (NEGATIVE); CANNABINOID SCREEN,URINE NEGATIVE (NEGATIVE); COCAINE SCREEN,URINE NEGATIVE (NEGATIVE); METHADONE SCREEN, URINE NEGATIVE (NEGATIVE); OPIATE SCREEN,URINE NEGATIVE (NEGATIVE)
[2021-05-12 14:09] LABS: PHENCYCLIDINE SCREEN,URINE NEGATIVE (NEGATIVE)
== END 2021-05-12 14:20 | disposition home or self-care (01) ==
LOC: EMS 11:03
DX: G40.909 Epilepsy, unspecified, not intractable, without status epilepticus (principal); F17.210 Nicotine dependence, cigarettes, uncomplicated; F11.90 Opioid use, unspecified, uncomplicated; Z79.899 Other long term (current) drug therapy
CPT/HCPCS: 36415; 80053; 80307; 81003; 82550; 83880; 84484; 85025; 93005; 96365; 99284; G0480; J0712; J7060

== ENCOUNTER 2021-05-16 23:49 | Inpatient (IN) | payer MEDICAID ==
[~2021-05-16] VITALS: Ht 160 cm; Wt 54.9 kg
[2021-05-17 12:00] VITALS: BP 110/70
[2021-05-17] MEDS ORDERED: HALOPERIDOL 5 MG TABLET PO PRN (13:00)
[2021-05-17] MEDS ORDERED: ZOLPIDEM TARTRATE 10 MG TABLET PO PRN (13:00)
[2021-05-17] MEDS ORDERED: PNEUMOCOCCAL VACCINE POLYVALENT 0.5 ML VIAL [PPSV23] IM. ONE (13:30)
[2021-05-17] MEDS: LORazepam 1 MG TABLET PO PRN (13:55)
[2021-05-17] MEDS ORDERED: MAGNESIUM OXIDE 400 MG TABLET PO ONE (15:30)
[2021-05-17 16:01] VITALS: BP 101/63
[2021-05-17] MEDS: LevETIRAcetam 500 MG TABLET PO SCH (16:01)
[2021-05-17] MEDS: GABAPENTIN 300 MG CAPSULE PO SCH (16:01)
[2021-05-17] MEDS: QUEtiapine FUMARATE 200 MG TABLET PO SCH (20:06)
[2021-05-18 00:22] VITALS: BP 125/76
[2021-05-18] MEDS: GABAPENTIN 300 MG CAPSULE PO SCH (07:55)
[2021-05-18] MEDS: LORazepam 1 MG TABLET PO PRN (07:55)
[2021-05-18] MEDS: LevETIRAcetam 500 MG TABLET PO SCH ×2 (07:55→16:08)
[2021-05-18 08:02] VITALS: BP 126/68
[2021-05-18 16:01] VITALS: BP 116/74
[2021-05-18] MEDS: QUEtiapine FUMARATE 200 MG TABLET PO SCH (20:14)
[2021-05-19 01:19] VITALS: BP 112/70
[2021-05-19] MEDS: LevETIRAcetam 500 MG TABLET PO SCH ×2 (08:08→16:49)
[2021-05-19] MEDS: LORazepam 1 MG TABLET PO PRN ×2 (08:08→16:49)
[2021-05-19] MEDS: GABAPENTIN 300 MG CAPSULE PO SCH (08:08)
[2021-05-19 08:10] VITALS: BP 110/72
[2021-05-19] MEDS ORDERED: MAGNESIUM HYDROXIDE SUSPENSION 30 ML UDCUP PO PRN (10:00)
[2021-05-19] MEDS ORDERED: DOCUSATE SODIUM 100 MG CAPSULE PO PRN (10:00)
[2021-05-19] MEDS ORDERED: NICOTINE 14 MG/24 HOUR PATCH TD PRN (10:00)
[2021-05-19] MEDS ORDERED: MAG HYDROX/AL HYDROX/SIMETH ES 30 ML SUSPENSION UDCUP PO PRN (10:00)
[2021-05-19] MEDS ORDERED: LOPERAMIDE HCL 2 MG CAPSULE PO PRN (10:00)
[2021-05-19] MEDS ORDERED: CloNIDine HCL 0.1 MG TABLET PO PRN (10:00)
[2021-05-19] MEDS ORDERED: PETROLATUM,WHITE 28 GM JELLY TP PRN (10:00)
[2021-05-19] MEDS ORDERED: GuaiFENesin/D-METHORPHAN [SUGAR-FREE] 200-20MG/10 ML SYRUP UDCUP PO PRN (10:00)
[2021-05-19] MEDS ORDERED: ALBUTEROL SULFATE HFA 90 MCG/PUFF 8 GM INHALER IH PRN (10:00)
[2021-05-19] MEDS ORDERED: IBUPROFEN 400 MG TABLET PO PRN (10:00)
[2021-05-19] MEDS ORDERED: ACETAMINOPHEN 325 MG TABLET PO PRN (10:00)
[2021-05-19] MEDS ORDERED: ONDANSETRON HCL 4 MG TABLET PO PRN (10:00)
[2021-05-19 16:13] VITALS: BP 124/68
[2021-05-19] MEDS: QUEtiapine FUMARATE 200 MG TABLET PO SCH (20:33)
[2021-05-20 00:28] VITALS: BP 113/62
[2021-05-20] MEDS: GABAPENTIN 300 MG CAPSULE PO SCH (08:01)
[2021-05-20] MEDS: LevETIRAcetam 500 MG TABLET PO SCH (08:01)
[2021-05-20 08:27] VITALS: BP 113/63
[2021-05-20] MEDS: LORazepam 1 MG TABLET PO PRN (09:08)
== END 2021-05-20 14:10 | disposition home or self-care (01) | DRG 750 ==
LOC: B3A 05-17 12:59
DX: F25.0 Schizoaffective disorder, bipolar type (principal); G40.909 Epilepsy, unspecified, not intractable, without status epilepticus; B19.20 Unspecified viral hepatitis C without hepatic coma; F10.10 Alcohol abuse, uncomplicated; F15.20 Other stimulant dependence, uncomplicated; F17.200 Nicotine dependence, unspecified, uncomplicated; Z59.0 Homelessness; Z91.5 Personal history of self-harm; Z28.21 Immunization not carried out because of patient refusal
CPT/HCPCS: 83735; 84132; 87081

== ENCOUNTER 2021-05-30 22:13 | Emergency (ER) | payer MEDICAID ==
[~2021-05-30] VITALS: Ht 160 cm; Wt 45.5 kg
[2021-05-30 23:02] LABS: APPEARANCE,URINE CLOUDY (CLEAR); BILIRUBIN,URINE NEGATIVE (NEGATIVE); GLUCOSE, URINE (UA) NEGATIVE (NEGATIVE); KETONES,URINE NEGATIVE (NEGATIVE); LEUKOCYTE ESTERASE ,URINE NEGATIVE (NEGATIVE); NITRATE,URINE NEGATIVE (NEGATIVE); OCCULT BLOOD,URINE NEGATIVE (NEGATIVE); PROTEIN,URINE NEGATIVE (NEGATIVE)
[2021-05-30 23:07] LABS: BACTERIA,URINE Rare /HPF (None Seen); RBC,URINE None Seen /HPF (0-2); WBC,URINE 0-2 /HPF (0-5)
[2021-05-30 23:09] LABS: BASOPHILS % (AUTO) 0.5 % (0.0-2.0); EOSINOPHILS % (AUTO) 1.3 % (1.0-6.0); HEMATOCRIT 35.1 % (36-46); HEMOGLOBIN 11.6 g/dL (12.0-16.0); LYMPHOCYTES # (AUTO) 3.1 K/uL (1.0-4.8); LYMPHOCYTES % (AUTO) 32.5 % (22.0-44.0); MEAN CORPUSCULAR HEMOGLOBIN 30.5 pg (26.0-34.0); MEAN CORPUSCULAR HGB CONC 33.2 G/dL (31.0-37.0); MEAN CORPUSCULAR VOLUME 92 fL (80-100); MONOCYTES # (AUTO) 0.6 K/uL (0.1-1.0); MONOCYTES % (AUTO) 5.9 % (2.0-9.0); NEUTROPHILS # (AUTO) 5.8 K/uL (1.8-7.7); NEUTROPHILS % (AUTO) 59.8 % (40.0-70.0); PLATELET COUNT (AUTO) 340 K/uL (150-450); RED BLOOD CELL COUNT(AUTO) 3.81 MIL/uL (4.00-5.20)
[2021-05-30 23:25] LABS: ANION GAP 7 mmol/L (8-16); CALCIUM, TOTAL 9.1 mg/dL (8.8-10.5); CARBON DIOXIDE 33 mmol/L (22-29); CHLORIDE 104 mmol/L (98-107); CREATININE 0.47 mg/dL (0.60-1.30); GLOMERULAR FILTR. RATE CALC > 60 mL/min (>60); GLUCOSE,RANDOM 91 mg/dL (70-110); POTASSIUM 3.8 mmol/L (3.5-5.1); SODIUM SERUM 144 mmol/L (136-145); UREA NITROGEN, BLOOD 18 mg/dL (7-18)
[2021-05-30 23:31] LABS: ALANINE AMINOTRANSFERASE 21 U/L (12-78); ALBUMIN 3.7 g/dL (3.4-5.0); ALKALINE PHOSPHATASE 114 U/L (46-116); ASPARTATE AMINOTRANSFERASE 12 U/L (15-37); BILIRUBIN,TOTAL 0.2 mg/dL (0.1-1.0); TOTAL PROTEIN, SERUM 6.9 g/dL (6.4-8.2)
[2021-05-31] MEDS ORDERED: PERMETHRIN 1% 60 ML LOTION TP ONE
[2021-05-31 00:39] VITALS: BP 104/67
== END 2021-05-31 00:17 | disposition home or self-care (01) ==
LOC: EMS 22:17
DX: S92.902D Unspecified fracture of left foot, subsequent encounter for fracture with routine healing (principal); F25.9 Schizoaffective disorder, unspecified; F31.9 Bipolar disorder, unspecified; F17.210 Nicotine dependence, cigarettes, uncomplicated; F11.90 Opioid use, unspecified, uncomplicated; F19.90 Other psychoactive substance use, unspecified, uncomplicated; X58.XXXD Exposure to other specified factors, subsequent encounter
CPT/HCPCS: 80053; 81001; 85025; 99283

== ENCOUNTER 2021-06-23 15:12 | Emergency (ER) | payer MEDICAID ==
[~2021-06-23] VITALS: Ht 160 cm; Wt 45.5 kg
[2021-06-23 16:32] LABS: BASOPHILS % (AUTO) 0.5 % (0.0-2.0); EOSINOPHILS % (AUTO) 0.4 % (1.0-6.0); HEMATOCRIT 36.2 % (36-46); HEMOGLOBIN 12.2 g/dL (12.0-16.0); LYMPHOCYTES # (AUTO) 4.3 K/uL (1.0-4.8); LYMPHOCYTES % (AUTO) 53.4 % (22.0-44.0); MEAN CORPUSCULAR HEMOGLOBIN 29.9 pg (26.0-34.0); MEAN CORPUSCULAR HGB CONC 33.6 G/dL (31.0-37.0); MEAN CORPUSCULAR VOLUME 89 fL (80-100); MONOCYTES # (AUTO) 1.2 K/uL (0.1-1.0); NEUTROPHILS # (AUTO) 2.5 K/uL (1.8-7.7); NEUTROPHILS % (AUTO) 30.7 % (40.0-70.0); PLATELET COUNT (AUTO) 321 K/uL (150-450); RED BLOOD CELL COUNT(AUTO) 4.07 MIL/uL (4.00-5.20); RED CELL DISTRIBUTION WIDTH 14.4 % (11.5-14.5)
[2021-06-23 16:50] LABS: ALANINE AMINOTRANSFERASE 19 U/L (12-78); ALBUMIN 3.6 g/dL (3.4-5.0); ALKALINE PHOSPHATASE 89 U/L (46-116); ANION GAP 8 mmol/L (8-16); ASPARTATE AMINOTRANSFERASE 15 U/L (15-37); BILIRUBIN,TOTAL 0.3 mg/dL (0.1-1.0); CALCIUM, TOTAL 10.4 mg/dL (8.8-10.5); CARBON DIOXIDE 33 mmol/L (22-29); CHLORIDE 101 mmol/L (98-107); CREATININE 0.56 mg/dL (0.60-1.30); GLOMERULAR FILTR. RATE CALC > 60 mL/min (>60); GLUCOSE,RANDOM 89 mg/dL (70-110); SODIUM SERUM 142 mmol/L (136-145); TOTAL PROTEIN, SERUM 7.6 g/dL (6.4-8.2); UREA NITROGEN, BLOOD 15 mg/dL (7-18)
[2021-06-23 16:52] LABS: POTASSIUM 2.3 mmol/L (3.5-5.1)
[2021-06-23 16:55] LABS: AMPHET/METH SCREEN,URINE POSITIVE (NEGATIVE); BARBITURATE SCREEN, URINE NEGATIVE (NEGATIVE); BENZODIAZEPINES SCREEN,URINE NEGATIVE (NEGATIVE); CANNABINOID SCREEN,URINE NEGATIVE (NEGATIVE); COCAINE SCREEN,URINE NEGATIVE (NEGATIVE); METHADONE SCREEN, URINE NEGATIVE (NEGATIVE); OPIATE SCREEN,URINE NEGATIVE (NEGATIVE)
[2021-06-23 16:59] LABS: PHENCYCLIDINE SCREEN,URINE NEGATIVE (NEGATIVE)
[2021-06-23] MEDS ORDERED: POTASSIUM CHLORIDE 10% 40 MEQ/30 ML LIQUID UDCUP PO ONE ×2 (17:00→17:20)
[2021-06-23] MEDS ORDERED: LevETIRAcetam 500 MG TABLET PO ONE (17:30)
[2021-06-23] MEDS ORDERED: GABAPENTIN 100 MG CAPSULE PO ONE (17:30)
[2021-06-23 18:17] VITALS: BP 126/65
== END 2021-06-23 18:25 | disposition home or self-care (01) ==
LOC: EMS 15:12
DX: F25.9 Schizoaffective disorder, unspecified (principal); F31.9 Bipolar disorder, unspecified; E87.6 Hypokalemia; F15.10 Other stimulant abuse, uncomplicated; F69 Unspecified disorder of adult personality and behavior; F11.20 Opioid dependence, uncomplicated; F17.210 Nicotine dependence, cigarettes, uncomplicated; Z59.00 Homelessness unspecified
CPT/HCPCS: 36415; 80053; 80307; 84703; 85025; 99284; G0480

== ENCOUNTER 2021-06-23 19:42 | Emergency (ER) | payer MEDICAID ==
[~2021-06-23] VITALS: Ht 160 cm; Wt 45.9 kg
[~2021-06-23 19:42] MED LIST changes: +LEVE500T20 PO; -LEVE500T53 PO
[2021-06-23 20:20] VITALS: BP 130/87
== END 2021-06-24 01:01 | disposition left against medical advice (07) ==
LOC: EMS 19:43
DX: Z00.8 Encounter for other general examination (principal); Z53.21 Procedure and treatment not carried out due to patient leaving prior to being seen by health care provider